=== PATIENT | male | born 1970 | race American Indian/Alaskan Native ===

== ENCOUNTER → 2018-08-09 17:30 | Emergency (ER) | payer MEDICAID ==
[2018-08-09 17:41] VITALS: BMI 23.5
[2018-08-09 17:46] VITALS: BP 119/80; PULSE 86; RESP 18; TEMP 98.4; O2SAT 99
== END | disposition left against medical advice (07) ==
LOC: C.ER 17:30
DX: Z02.89 Encounter for other administrative examinations (principal); M79.605 Pain in left leg

== ENCOUNTER 2018-08-09 23:57 | Emergency (ER) | payer MEDICAID ==
[2018-08-09 23:58] VITALS: BMI 23.5
[2018-08-10 00:38] VITALS: BP 135/100; PULSE 82; RESP 20; TEMP 97.7; O2SAT 98
[2018-08-10] MEDS ORDERED: Hydrocodone/Acetaminophen 5 mg /300 mg Tab PO STA (01:22)
--- NOTE | 2018-09-06 04:54 | C.PDOC ---
Time Seen by Provider: 08/10/18 01:03 Chief Complaint (Nursing): Lower Extremity Problem/Injury Past Medical History Vital Signs: Last Vital Signs Temp 97.7 F 08/10/18 00:33 Pulse 82 08/10/18 00:33 Resp 20 08/10/18 00:33 BP 135/100 H 08/10/18 00:33 Pulse Ox 98 08/10/18 00:33 - Social History Hx Alcohol Use: No Hx Substance Use: No - Immunization History Hx Tetanus Toxoid Vaccination: No Hx Influenza Vaccination: No Hx Pneumococcal Vaccination: No ED Course And Treatment O2 Sat by Pulse Oximetry: 98 Medical Decision Making Medical Decision Making: i did not evaluate this patient prior to the elopement from the ER Disposition - Disposition Disposition: LEFT W/O BEING SEEN - ER ONLY Forms: [facility] (Irish)
== END 2018-08-10 01:40 | disposition left against medical advice (07) ==
LOC: C.ER 23:57
DX: Z02.89 Encounter for other administrative examinations (principal)